=== PATIENT | male | born 1980 | race Caucasian/White ===

== ENCOUNTER 2022-08-20 15:14 | Emergency (ER) | payer BC, SELFPAY ==
[2022-08-20 15:30] VITALS: BP 150/100; PULSE 113; RESP 18; TEMP 36.3; O2SAT 98
--- NOTE | 2022-08-20 15:57 | ED.URI ---
HPI - URI/Sore Throat General Chief Complaint: Upper Respiratory Infection Stated Complaint: Cough,Body Aches,Fatigue Time Seen by Provider: 08/20/22 15:48 Source: patient Mode of arrival: ambulatory Limitations: no limitations History of Present Illness HPI Narrative: Patient presents today complaining of 3 day history of cough, congestion, body aches with a 2 day history of subjective fever. Denies shortness of breath or chest pain. He has been taking Mucinex, Tylenol, Aleve, and Zyrtec with some relief. Denies any sick contacts. Related Data Home Medications Medication Instructions Recorded Confirmed diphenhydramine HCl 50 mg/30 mL 50 mg PO DAILY 08/20/22 08/20/22 oral liquid melatonin 3 mg disintegrating 3 mg PO DAILY 08/20/22 08/20/22 tablet sertraline 100 mg tablet 100 mg PO DAILY 08/20/22 08/20/22 testosterone cypionate 200 mg/mL 200 mg subcut WEEKLY 08/20/22 08/20/22 intramuscular oil Allergies Allergy/AdvReac Type Severity Reaction Status Date / Time Penicillins Allergy Unknown Verified 08/20/22 15:41 [email or web address] Allergy Unknown Verified 08/20/22 15:41 Review of Systems Review of Systems: CONSTITUTIONAL: Denies chills, or sweats.+ Body aches, subjective fever EYES: Denies visual changes, redness, or discharge. ENT: Denies rhinorrhea, sore throat, or otalgia.+ congestion CARDIOVASCULAR: Denies chest pain, palpitations, or edema. RESPIRATORY: + cough, shortness of breath with exertion GASTROINTESTINAL: Denies abdominal pain, nausea, vomiting, or diarrhea. GENITOURINARY: Denies dysuria or hematuria. SKIN: Denies rash, itching, or wounds. MUSCULOSKELETAL: Denies back pain, joint pain, or myalgia. NEUROLOGIC: Denies headache, numbness, tingling, or weakness. PSYCH: Denies depression or anxiety. PMFSH Comments At time of signature, I have reviewed and agree with nursing past medical, surgical, social and family history unless otherwise noted. Please see nursing chart for further information. There is no relevant family history pertinent to the presenting complaint Exam Narrative: GENERAL: mildly ill-appearing, well-nourished, and in no acute distress. HEAD: Normocephalic, atraumatic. EYES: EOMI. No redness or drainage. Conjunctivae normal. ENT: Mucous membranes pink and moist. Nares congested with rhinorrhea. TMs normal bilaterally. Throat normal. Uvula midline. NECK: Normal AROM. Supple. No lymphadenopathy. CHEST: No respiratory distress. Clear to auscultation. HEART: Regular rate and rhythm. No murmur appreciated. Normal peripheral pulses. EXTREMITIES: Normal range of motion. No edema. SKIN: Warm, dry, no rash. Capillary refill normal. Normal skin turgor. NEURO: No focal deficits. Alert and oriented x3. Gait steady. PSYCH: Normal affect. No signs of depression or anxiety. Course Course Level of Care: Express Care Visit Vital Signs Vital signs: Vital Signs Temperature 97.4 F L 08/20/22 15:30 Pulse Rate 113 H 08/20/22 15:30 Respiratory Rate 18 08/20/22 15:30 Blood Pressure 150/100 H 08/20/22 15:30 Pulse Oximetry 98 08/20/22 15:30 Oxygen Delivery Room Air 08/20/22 15:30 Temperature 97.4 F L 08/20/22 15:30 Pulse Rate 113 H 08/20/22 15:30 Respiratory Rate 18 08/20/22 15:30 Blood Pressure 150/100 H 08/20/22 15:30 Pulse Oximetry 98 08/20/22 15:30 Oxygen Delivery Room Air 08/20/22 15:30 Reviewed. Pt has been instructed to follow up with his PCP regarding his elevated blood pressure today. MDM - URI/Sore Throat MDM Narrative Medical decision making narrative: declines COVID-19 swab Differential Diagnosis Differential diagnosis: Likely upper respiratory infection, sinusitis, viral infection, bronchitis, influenza, pharyngitis and other ( COVID-19, strep throat) Lab Data Attestation: I reviewed the patient's lab results. Labs: Influenza A Screen Negative Reference R
== END 2022-08-20 16:06 | disposition home or self-care (01) ==
PROVIDERS: Emergency Provider Nurse Practitioner
DX: J06.9 Acute upper respiratory infection, unspecified (principal)
CPT/HCPCS: 87081; 87804; 87880; 99203; G0463